=== PATIENT | male | born 1935 | race Caucasian/White ===

== ENCOUNTER 2018-03-19 07:46 | Day surgery (SDC) | payer OTHER, MEDICARE, BC ==
[~2018-03-19 07:46] MED LIST: Sodium Chloride 0.9% 1,000 ML IV SCH; Sodium Chloride 0.9% 10 ML Syringe FLUSH PRN
[2018-03-19] MEDS ORDERED: Propofol 200 MG/20 ML SDV ONE (09:30)
--- NOTE | 2018-03-19 16:22 | OR ---
DATE OF OPERATION: 03/19/2018 PREOPERATIVE DIAGNOSIS: Dysphagia for solids. POSTOPERATIVE DIAGNOSES: 1. Large paraesophageal hernia. 2. 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 OPERATION: Esophagogastroduodenoscopy. COMPLICATIONS: None. DRAINS: None. SPECIMENS: None. ESTIMATED BLOOD LOSS: Zero. ANESTHESIA: General propofol anesthesia. INDICATION: Mr. Palomino is an 82-year-old gentleman who has a chronic history of dysphagia for solids and this has progressed over the past year where he does require to puree his food orally or in a machine for intake. If he does not chew completely, he will experience food buildup in the chest. The concern was for a stricture. Previous upper endoscopy was nonrevealing. The above-mentioned procedure was explained. The risks, benefits, and complications were explained. The patient understood and agreed and he was brought to the operating room. DESCRIPTION OF PROCEDURE: The patient was brought to the operating room and placed in the left lateral decubitus position on the operating room table. The patient was then positioned in a 45-degree head-up position and a mouth guard was placed. General propofol anesthesia was administered. We began by placing the endoscope under direct visualization into the oral cavity and subsequently advancing to the level of the duodenum. I was able to intubate the first portion of the duodenum and the bulb appeared normal. It is of note that I had a fair amount of twisting of the EGD scope in the stomach, and on retroflexion, there were multiple areas of herniated stomach seen through the diaphragm. The GE junction was normal, however, laid in the chest suggesting paraesophageal hernia. The gastric mucosa was normal with no erosions or ulcerations. There was no identifiable stricture. The remainder of the esophagus was normal on withdrawal. The endoscope was withdrawn. The patient tolerated the procedure well. There were no complications. Instrument count was correct. The patient was awoken in the OR and taken to the PACU for recovery. Recommend upper GI, which I will schedule in [place]. CHEN/RONY /[id number]
== END 2018-03-19 11:07 | disposition home or self-care (01) ==
LOC: LB.SDS 07:46
PROVIDERS: ATTEND Surgery
DX: K44.9 Diaphragmatic hernia without obstruction or gangrene (principal); I10 Essential (primary) hypertension; Z79.899 Other long term (current) drug therapy
CPT/HCPCS: 43235; J2704; J7040; J7030